=== PATIENT | male | born 1960 | race Caucasian/White ===

== ENCOUNTER 2021-12-29 15:49 | Emergency (ER) | payer OTHER ==
[~2021-12-29] VITALS: Ht 180.3 cm; Wt 81.6 kg
[2021-12-29 16:33] VITALS: BP 121/71
--- NOTE | 2021-12-29 16:38 | NUR ---
SEVERE DENTAL PAIN - CALLED 911 - FROM THE FACILITY- [facility]
[2021-12-29] MEDS ORDERED: HYDROCODONE/APAP 10/325MG TABLET PO ONE (17:00)
[2021-12-29] MEDS ORDERED: HYDROCODONE/APAP 10/325MG TABLET ONE (17:02)
--- NOTE | 2021-12-29 17:12 | NUR ---
CALLED [facility] AND SET UP S TRANSPORT ETA [phone]
[2021-12-29] MEDS ORDERED: AMOX-430 PO (17:33)
--- NOTE | 2021-12-29 18:54 | NUR ---
TRANSPORTATION ARRIVED, PT BEING TRANSPORTED BACK TO FACILITY IN STABLE CONDITION.
== END 2021-12-29 18:55 | disposition home or self-care (01) ==
LOC: ER 15:51
DX: K04.7 Periapical abscess without sinus (principal); K02.9 Dental caries, unspecified; F32.A Depression, unspecified; F41.9 Anxiety disorder, unspecified; Z90.49 Acquired absence of other specified parts of digestive tract; Z79.899 Other long term (current) drug therapy